=== PATIENT | female | born 1960 | race Caucasian/White ===

== ENCOUNTER → 2017-06-25 | Day surgery (SDC) | payer OTHER ==
[~2017-06-25] MED LIST: HYDROmorphone 2 MG/ML VIAL IV; LIDOCAINE 1% PF 2 ML VIAL. ID; LIDOCAINE 2% PF Vial for OR 5 ML VIAL.; MORPHINE SULFATE 4 MG/ML DISP.SYRIN. IV; ONDANSETRON PF 4 MG/2 ML VIAL. IV; PROCHLORPERAZINE 10 MG/2 ML VIAL. IV; PROPOFOL 40 ML IV; fentaNYL PF VIAL 100 MCG/2 ML VIAL IV
[2017-06-25] MEDS: IV RINGERS,LACTATED 1000ML 1,000 ML IV (06:31)
== END | disposition home or self-care (01) ==
LOC: ENDOS 06:00
DX: Z12.11 Encounter for screening for malignant neoplasm of colon (principal); K29.50 Unspecified chronic gastritis without bleeding; E78.00 Pure hypercholesterolemia, unspecified; Z90.49 Acquired absence of other specified parts of digestive tract; K21.9 Gastro-esophageal reflux disease without esophagitis; Z98.890 Other specified postprocedural states; M19.90 Unspecified osteoarthritis, unspecified site; F17.200 Nicotine dependence, unspecified, uncomplicated; K64.0 First degree hemorrhoids; K29.70 Gastritis, unspecified, without bleeding
CPT/HCPCS: 43235; 88305; J2704

== ENCOUNTER → 2017-06-30 | Outpatient (CLI) | payer OTHER ==
[2017-06-30 11:52] LABS: ADD MAN DIFF? NO
[2017-06-30 11:58] LABS: BASO # 0.1 x10^3/uL (0.0-0.2); BASO % 1 % (0-3); EOS % 1 % (0-3); HEMATOCRIT 41.7 % (36.0-47.0); HEMOGLOBIN 14.4 g/dL (12.0-15.5); LYMPH # 1.7 x10^3/uL (1.0-4.8); LYMPH % 34 % (24-48); MEAN CORPUSCULAR HEMOGLOBIN 30 pg (25-35); MEAN CORPUSCULAR HGB CONC 35 g/dL (31-37); MEAN CORPUSCULAR VOLUME 86 fL (79-100); MONO # 0.4 x10^3/uL (0.0-1.1); MONO % 8 % (0-9); NEUT # 2.8 x10^3uL (1.8-7.7); NEUT % 56 % (31-73); PLATELET COUNT 290 x10^3/uL (140-400); RED BLOOD COUNT 4.84 x10^6/uL (3.50-5.40); RED CELL DISTRIBUTION WIDTH 12.4 % (11.5-14.5)
[2017-06-30 12:30] LABS: ALBUMIN/GLOBULIN RATIO 1.1 (1.0-1.7); ALK PHOS 117 U/L (46-116); ALT (SGPT) 55 U/L (14-59); ANION GAP 10 (6-14); AST (SGOT) 18 U/L (15-37); BLOOD UREA NITROGEN 13 mg/dL (7-20); BUN/CREATININE RATIO 13 (6-20); C-REACTIVE PROTEIN 2.7 mg/L (0-3.3); CALCIUM 9.5 mg/dL (8.5-10.1); CARBON DIOXIDE 30 mmol/L (21-32); CHLORIDE 101 mmol/L (98-107); GFR 57.4; GLUCOSE 140 mg/dL (70-99); POTASSIUM 3.6 mmol/L (3.5-5.1); SODIUM 141 mmol/L (136-145); TOTAL BILIRUBIN 0.4 mg/dL (0.2-1.0); TOTAL PROTEIN 7.8 g/dL (6.4-8.2)
[2017-06-30 13:08] LABS: SEDIMENTATION RATE 17 (0-25)
[2017-07-02 18:11] LABS: ANA INTERP Negative (.)
== END | disposition home or self-care (01) ==
LOC: LAB 11:36
DX: M25.50 Pain in unspecified joint (principal)
CPT/HCPCS: 36415; 80053; 85025; 85651; 86038; 86140

== ENCOUNTER → 2017-07-30 | Outpatient (CLI) | payer OTHER | END | disposition home or self-care (01) | LOC: NM 08:28 | DX: K30 Functional dyspepsia (principal); Z87.891 Personal history of nicotine dependence | CPT/HCPCS: 78264; A9541 ==

== ENCOUNTER 2017-10-05 10:29 | Emergency (ER) | payer OTHER | END 2017-10-05 12:17 | disposition home or self-care (01) | LOC: ER 10:29 | DX: S59.902A Unspecified injury of left elbow, initial encounter (principal); Z88.8 Allergy status to other drugs, medicaments and biological substances; W01.0XXA Fall on same level from slipping, tripping and stumbling without subsequent striking against object, initial encounter; Y93.89 Activity, other specified; Y99.8 Other external cause status; Y92.89 Other specified places as the place of occurrence of the external cause | CPT/HCPCS: 73080; 99284 ==

== ENCOUNTER → 2018-02-03 | Outpatient (CLI) | payer OTHER ==
[2017-10-05 12:01] VITALS: BP 135/64
[~2018-02-03] MED LIST changes: +CHOL100017 PO; +DULO60CA6 PO; +HYDR-2758 PO; -HYDROmorphone 2 MG/ML VIAL IV; -LIDOCAINE 1% PF 2 ML VIAL. ID; -LIDOCAINE 2% PF Vial for OR 5 ML VIAL.; +MAGN400C PO; +MELA3TAB2 PO; +MONT10TA6 PO; -MORPHINE SULFATE 4 MG/ML DISP.SYRIN. IV; -ONDANSETRON PF 4 MG/2 ML VIAL. IV; -PROCHLORPERAZINE 10 MG/2 ML VIAL. IV; -PROPOFOL 40 ML IV; +SIMV20TA3 PO; +TIZA4TAB PO; +TRAM50TA PO; -fentaNYL PF VIAL 100 MCG/2 ML VIAL IV
[2018-02-03 08:40] LABS: BASO % 1 % (0-3); EOS # 0.1 x10^3/uL (0.0-0.7); EOS % 2 % (0-3); HEMATOCRIT 39.6 % (36.0-47.0); HEMOGLOBIN 13.5 g/dL (12.0-15.5); LYMPH # 1.7 x10^3/uL (1.0-4.8); LYMPH % 43 % (24-48); MEAN CORPUSCULAR HEMOGLOBIN 30 pg (25-35); MEAN CORPUSCULAR HGB CONC 34 g/dL (31-37); MEAN CORPUSCULAR VOLUME 87 fL (79-100); MONO # 0.4 x10^3/uL (0.0-1.1); MONO % 11 % (0-9); NEUT # 1.7 x10^3uL (1.8-7.7); NEUT % 43 % (31-73); PLATELET COUNT 253 x10^3/uL (140-400); RED BLOOD COUNT 4.54 x10^6/uL (3.50-5.40); RED CELL DISTRIBUTION WIDTH 12.5 % (11.5-14.5); WHITE BLOOD COUNT 3.9 x10^3/uL (4.0-11.0)
[2018-02-03 08:52] LABS: AMPHETAMINE/METHAMPHETAMINE NEG (NEG); BARBITURATES NEG (NEG); BENZODIAZEPINES NEG (NEG); CANNABINOIDS NEG (NEG); COCAINE NEG (NEG); METHADONE NEG (NEG); OPIATES POS (NEG); PHENCYCLIDINE NEG (NEG)
[2018-02-03 09:06] LABS: ALBUMIN 3.9 g/dL (3.4-5.0); ALBUMIN/GLOBULIN RATIO 1.2 (1.0-1.7); CALCIUM 9.2 mg/dL (8.5-10.1); CREATININE 1.1 mg/dL (0.6-1.0); GFR 51.2; POTASSIUM 4.4 mmol/L (3.5-5.1); TOTAL BILIRUBIN 0.3 mg/dL (0.2-1.0); TOTAL PROTEIN 7.2 g/dL (6.4-8.2)
== END | disposition home or self-care (01) ==
LOC: LAB 08:22
PROVIDERS: ATTEND Internal Medicine Rheumatology
DX: M25.50 Pain in unspecified joint (principal); Z79.891 Long term (current) use of opiate analgesic
CPT/HCPCS: 36415; 80053; 80307; 85025; 85651; G0479

== ENCOUNTER → 2019-07-10 | Outpatient (CLI) | payer OTHER ==
[2017-10-05 12:01] VITALS: BP 135/64
[~2019-07-10] MED LIST changes: -HYDR-2758 PO; +HYDR-2761 PO; -MELA3TAB2 PO; +MELA3TAB4 PO; +MONT10TA49 PO; -MONT10TA6 PO; +SIMV20TA18 PO; -SIMV20TA3 PO; -TIZA4TAB PO; +TIZA4TAB2 PO
--- NOTE | 2019-07-10 16:36 | RAD ---
CT study of the abdomen without contrast Clinical indications: Abnormal renal ultrasound. Specifically, echogenicity involving the superior aspect of the left kidney which is difficult to characterize by sonography. COMPARISON: Renal sonogram dated May 24, 2019. TECHNIQUE: Noncontrast helical CT scanning of the abdomen was performed from the hemidiaphragms down to the iliac crests. Without contrast, the sensitivity to detect organ pathology and GI tract pathology is decreased. PQRS compliance Statement One or more of the following individualized dose reduction techniques were utilized for this study: 1. Automated exposure control 2. Adjustment of the mA and/or kV according to patient size 3. Use of iterative reconstruction technique FINDINGS: Diffuse fatty infiltration of the liver is evident. The spleen measures 10.4 cm in length and is normal. Pancreas is homogeneous on this noncontrast study without focal enlargement. The gallbladder is surgically absent. No extrahepatic biliary ductal dilatation is seen. No adrenal mass is evident. There is scarring of the right kidney consistent with chronic pyelonephritis. Small punctate stones are seen within the right kidney. There is chronic scarring of the left kidney as well consistent with chronic pyelonephritis. No left renal stones are seen. No hydronephrosis or proximal hydroureter is evident. No focal aneurysmal dilatation of the abdominal aorta is seen. No enlarged abdominal lymphadenopathy is evident. No obstructive bowel pattern is seen. No free air or free fluid or mesenteric edema is evident. No lung base consolidation is evident. No lytic process is evident. IMPRESSION: Bilateral chronic pyelonephritis. Nonobstructing stones of the right kidney. Evaluation for renal mass is difficult without contrast. Renal contour is lobulated due to the scarring and chronic pyelonephritis. Fatty infiltration of the liver. Electronically signed by: Michael Kunz MD (07/10/2019 4:34 PM) [facility] [place]
== END | disposition home or self-care (01) ==
LOC: CT 13:10
PROVIDERS: ATTEND Nurse Practitioner Family
DX: N11.9 Chronic tubulo-interstitial nephritis, unspecified (principal); K76.0 Fatty (change of) liver, not elsewhere classified; N20.0 Calculus of kidney; Z90.49 Acquired absence of other specified parts of digestive tract
CPT/HCPCS: 74150